=== PATIENT | male | born 1980 | race Caucasian/White ===

== ENCOUNTER 2023-12-12 10:44 | Emergency (ER) | payer MEDICAID ==
[2023-12-12 12:12] LABS: BASOPHILS ABSOLUTE AUTO 0.03 K/uL (0.00-0.10); BASOPHILS PERCENT AUTO 0.6 % (0.1-1.3); EOSINOPHILS PERCENT AUTO 0.2 % (0.0-5.4); HEMATOCRIT 38.6 % (38.4-49.7); HEMOGLOBIN 13.9 g/dL (12.9-16.9); IMMATURE GRAN PERCENT AUTO 0.2 % (0.0-0.7); LYMPHOCYTES PERCENT AUTO 33.9 % (11.4-47.7); MEAN CORPUSCULAR HEMOGLOBIN 30.9 pg (31.6-35.5); MEAN CORPUSCULAR VOLUME 85.8 fL (81.4-99.0); MONOCYTES PERCENT AUTO 8.5 % (3.3-12.6); NEUTROPHILS ABSOLUTE AUTO 2.67 K/uL (1.0-7.6); NEUTROPHILS PERCENT AUTO 56.6 % (40.0-78.1); PLATELET COUNT,PLT 272 K/uL (130-375); WHITE BLOOD CELL COUNT,WBC 4.7 K/uL (3.2-11.0)
[2023-12-12 12:13] LABS: EOSINOPHILS ABSOLUTE AUTO 0.01 K/uL (0.00-0.40); IMMATURE GRAN ABSOLUTE AUTO 0.01 K/uL (0.00-0.23)
[2023-12-12 12:36] LABS: POTASSIUM,K 4.3 mmol/L (3.6-5.2)
[2023-12-12 12:37] LABS: CALCIUM 8.6 mg/dL (8.5-10.1); CREATININE 0.9 mg/dL (0.8-1.3); EST CRCL DRUG DOSING (CG) 102.48 mL/min; TROPONIN I HIGH SENSITIVITY 4.5 pg/mL (<=60.3)
[2023-12-12 12:38] LABS: ANION GAP 14.3 mmol/L (5.0-14.0)
== END 2023-12-12 14:12 | disposition home or self-care (01) ==
LOC: JP.ED 10:44
DX: R07.89 Other chest pain (principal)
CPT/HCPCS: 36415; 71046; 71046-26; 80048; 84484; 85025; 85379; 99285

== ENCOUNTER 2025-01-03 06:49 | Day surgery (SDC) | payer MEDICAID ==
[2025-01-03] MEDS: Lactated Ringers 1,000 ML IV SCH (07:13)
[2025-01-03] MEDS ORDERED: Propofol 200 MG/20 ML SDV ONE ×2 (07:32→08:27)
[2025-01-03] MEDS ORDERED: fentaNYL 50 MCG/ML SDV ONE (07:32)
[2025-01-03] MEDS ORDERED: Midazolam 1 MG/ML 2 ML SDV ONE (07:32)
== END 2025-01-03 12:19 | disposition home or self-care (01) ==
LOC: JP.SDS 06:49
PROVIDERS: ATTEND Surgery
DX: Z12.11 Encounter for screening for malignant neoplasm of colon (principal); D12.2 Benign neoplasm of ascending colon; R13.10 Dysphagia, unspecified; K22.89 Other specified disease of esophagus; K57.30 Diverticulosis of large intestine without perforation or abscess without bleeding
CPT/HCPCS: 00813; 43239; 45380; 88305; J2250; J2704; J3010; J7120